=== PATIENT | male | born 1960 | race Hispanic/Latino ===

== ENCOUNTER 2020-06-01 10:58 | Emergency (ER) | payer OTHER ==
--- NOTE | 2020-06-01 11:30 | RAD REPORT ---
EXAM DESCRIPTION: CT - Ct Stroke Brain Wo Cont - 06/01/2020 11:18 am CLINICAL HISTORY: Numbness COMPARISON: none TECHNIQUE: Computed axial tomography of the head was obtained. All CT scans are performed using dose optimization technique as appropriate and may include automated exposure control or mA/KV adjustment according to patient size. FINDINGS: An intracranial bleed is not seen . The ventricles are normal in caliber. No extra-axial fluid collection is noted. Fluid within the sinuses/ mastoids is not seen. IMPRESSION: No acute intracranial abnormality is seen. If patient's symptoms persist MRI of the bra in would be recommended. Frieda of the emergency room notified 11:24 a.m. June 01, 2020
[2020-06-01 11:33] LABS: Absolute Lymphocytes (CBC) 2.1 K/uL (0.7-4.9); Basophils % 0.9 % (0-1.3); Hematocrit 38.7 % (39.6-49.0); Lymphocytes % 34.6 % (15.3-44.8); RBC Red Blood Cell Count 4.55 M/uL (4.33-5.43)
[2020-06-01 11:38] LABS: Protime INR 0.9
[2020-06-01 11:49] LABS: Potassium 3.2 mmol/L (3.5-5.1)
--- NOTE | 2020-06-01 12:21 | RAD REPORT ---
EXAM DESCRIPTION: Trixie Single View06/01/2020 12:10 pm CLINICAL HISTORY: Hypertension/numbness COMPARISON: 2016 FINDINGS: The lungs appear clear of acute infiltrate. The heart is normal size IMPRESSION: No acute abnormalities displayed
--- OUTSIDE RECORDS SUMMARY | 2020-06-01 13:30 | XMS REPORT | Continuity of Care Document ---
:1960 Author Organization [facility] t Address [address] [place] [address] Care Team Providers Name Role Phone Unavailable Unavailable Unavailable Problems Condition Condition Condition Status Onset Resolution Last Treating Co mments Source Name Details Category Date Date Treatment Clinician Date Benign Benign Problem Active [facility] prostatic Prostatic da hypertroph Hypertroph Me dical y without y without Grou p outflow Outflow obstructio Obstructio n n Incomplete Incomplete Problem Active [facility] emptying Emptying da of bladder of Bladder Me dical Group Increased Increased Problem Active [facility] frequency Frequency da of of Medical urination Urination Grou p Allergies, Adverse Reactions, Alerts Allergy Allergy Status Severity Reaction(s) Onset Inactive Treating Comm ents Source Name Type Date Date Clinician Morphine Allergy Active [facility] to da substanc Medical e Group Social History Smoking Status Start Date Stop Date Source Light Tobacco Smoker [facility] Medications Ordered Filled Start Stop Current Ordering Indication Dosage Frequency Signature Comments Components Source Medication Medication Date Date Medication? Clinician (SIG) Name Name acetaminoph acetaminoph No acetaminop [facility] en 300 en 300 hen 300 da mg-codeine mg-codeine mg-codeine Medical 30 mg 30 mg 30 mg Group tablet tablet tablet alprazolam alprazolam No alprazolam [facility] 0.25 mg 0.25 mg 0.25 mg da tablet tablet tablet Medical Group alprazolam alprazolam No alprazolam [facility] 0.5 mg 0.5 mg 0.5 mg da tablet tablet tablet Medical Group alprazolam alprazolam No alprazolam [facility] 2 mg tablet 2 mg tablet 2 mg d a tablet Medical Group amlodipine amlodipine No amlodipine [facility] 10 mg 10 mg 10 mg da tablet tablet tablet Medical Group amlodipine amlodipine No amlodipine [facility] 5 mg tablet 5 mg tablet 5 mg d a tablet Medical Group amoxicillin amoxicillin No amoxicilli [facility] 500 mg 500 mg n 500 mg da capsule capsule capsule Medica l Group amoxicillin amoxicillin No amoxicilli [facility] 500 500 n 500 da mg-potassiu mg-potassiu mg-potassi Medical m m um Group clavulanate clavulanate clavulanat 125 mg 125 mg e 125 mg tablet tablet tablet amoxicillin amoxicillin No amoxicilli [facility] 875 875 n 875 da mg-potassiu mg-potassiu mg-potassi Medical m m um Group clavulanate clavulanate clavulanat 125 mg 125 mg e 125 mg tablet tablet tablet azithromyci azithromyci No azithromyc [facility] n 250 mg n 250 mg in 250 mg da tablet tablet tablet Medical Group benzonatate benzonatate No benzonatat [facility] 100 mg 100 mg e 100 mg da capsule capsule capsule Medica l Group bupropion bupropion No bupropion [facility] HCl SR 150 HCl SR 150 HCl SR 150 da mg mg mg Medical tablet,12 tablet,12 tablet,12 Group hr hr hr sustained-r sustained-r sustained- elease elease release buspirone buspirone No buspirone [facility] 7.5 mg 7.5 mg 7.5 mg da tablet tablet tablet Medical Group carisoprodo carisoprodo No carisoprod [facility] l 350 mg l 350 mg ol 350 mg da tablet tablet tablet Medical Group cephalexin cephalexin No cephalexin [facility] 500 mg 500 mg 500 mg da capsule capsule capsule Medica l Group clarithromy clarithromy No clarithrom [facility] mark 500 mg mark 500 mg ycin 500 da tablet tablet mg tablet Medica l Group clonazepam clonazepam No clonazepam [facility] 2 mg 2 mg 2 mg da disintegrat disintegrat disintegra Medical ing tablet ing tablet ting Moises up tablet diphenhydra diphenhydra No diphenhydr [facility] mine 25 mg mine 25 mg amine 25 da capsule capsule mg capsule Med ical Group donepezil 5 donepezil 5 No donepezil [facility] mg tablet mg tablet 5 mg da tablet Medical Group Duexis 800 Duexis 800 No Duexis 800 [facility] mg-26.6 mg mg-26.6 mg mg-26.6 mg da tablet tablet tablet Medical Group famotidine famotidine No famotidine [facility] 20 mg 20 mg 20 mg da tablet tablet tablet Medical Group finasteride finasteride No finasterid [facility] 5 mg tablet 5 mg tablet e 5 mg da Take 1 Take 1 tablet Medical tablet tablet Take 1 Group every day every day tablet by oral by oral every day route. route. by oral route. fluticasone fluticasone No fluticason [facility] 50 50 e 50 da mcg/actuati mcg/actuati mcg/actuat Medical on nasal on nasal ion nasal Gr oup spray,suspe spray,suspe spray,susp nsion nsion ension hydrocodone hydrocodone No hydrocodon [facility] 10 10 e 10 da mg-acetamin mg-acetamin mg-acetami Medical ophen 325 ophen 325 nophen 325 Group mg tablet mg tablet mg tablet hydroxyzine hydroxyzine No hydroxyzin [facility] HCl 10 mg HCl 10 mg e HCl 10 d a tablet tablet mg tablet Medica l Group ibuprofen ibuprofen No ibuprofen [facility] 800 mg 800 mg 800 mg da tablet tablet tablet Medical Group indomethaci indomethaci No indomethac [facility] n 25 mg n 25 mg in 25 mg da capsule capsule capsule Medica l Group lorazepam lorazepam No lorazepam [facility] 0.5 mg 0.5 mg 0.5 mg da tablet tablet tablet Medical Group losartan 25 losartan 25 No losartan [facility] mg tablet mg tablet 25 mg da tablet Medical Group losartan 50 losartan 50 No losartan [facility] mg tablet mg tablet 50 mg da tablet Medical Group memantine memantine No memantine [facility] 10 mg 10 mg 10 mg da tablet tablet tablet Medical Group methylpredn methylpredn No methylpred [facility] isolone 4 isolone 4 nisolone 4 da mg tablets mg tablets mg tablets Medical in a dose in a dose in a dose Group pack pack pack montelukast montelukast No montelukas [facility] 10 mg 10 mg t 10 mg da tablet tablet tablet Medical Group off deep off deep No off deep [facility] reinoso 25 % reinoso 25 % reinoso 25 % da aero aero aero Medical Group omeprazole omeprazole No omeprazole [facility] 40 mg 40 mg 40 mg da capsule,del capsule,del capsule,de Medical ayed ayed layed Group release release release pantoprazol pantoprazol No pantoprazo [facility] e 40 mg e 40 mg le 40 mg da tablet,miguel angel tablet,miguel angel tablet,del Medical yed release yed release ayed G roup release podofilox podofilox No podofilox [facility] 0.5 % 0.5 % 0.5 % da topical topical topical Medica l solution solution solution Moises up APPLY BY APPLY BY APPLY BY TOPICAL TOPICAL TOPICAL ROUTE 2 ROUTE 2 ROUTE 2 TIMES PER TIMES PER TIMES PER DAY FOR 3 DAY FOR 3 DAY FOR 3 DAYS THEN DAYS THEN DAYS THEN STOP FOR 4 STOP FOR 4 STOP FOR 4 DAYS. DAYS. DAYS. (REPEAT (REPEAT (REPEAT 7DAY CYCLE 7DAY CYCLE 7DAY CYCLE UNTIL NO UNTIL NO UNTIL NO VISIBLE VISIBLE VISIBLE WART WART WART TISSUE/MAX TISSUE/MAX TISSUE/MAX OF FOUR OF FOUR OF FOUR CYCLES) CYCLES) CYCLES) prednisone prednisone No prednisone [facility] 10 mg 10 mg 10 mg da tablet tablet tablet Medical Group prednisone prednisone No prednisone [facility] 20 mg 20 mg 20 mg da tablet tablet tablet Medical Group ProAir HFA ProAir HFA No ProAir HFA [facility] 90 90 90 da mcg/actuati mcg/actuati mcg/actuat Medical on aerosol on aerosol ion Moises up inhaler inhaler aerosol inhaler promethazin promethazin No promethazi [facility] e 6.25 mg/5 e 6.25 mg/5 ne 6.25 da mL syrup mL syrup mg/5 mL Medi luis syrup Group promethazin promethazin No promethazi [facility] e-DM 6.25 e-DM 6.25 ne-DM 6.25 da mg-15 mg/5 mg-15 mg/5 mg-15 mg/5 Medical mL syrup mL syrup mL syrup Moises up Pylera 140 Pylera 140 No Pylera 140 [facility] mg-125 mg-125 mg-125 da mg-125 mg mg-125 mg mg-125 mg Medical capsule capsule capsule Group Q-Tussin Q-Tussin No Q-Tussin [facility] 100 mg/5 mL 100 mg/5 mL 100 mg/5 da oral liquid oral liquid mL oral Medical liquid Group sertraline sertraline No sertraline [facility] 100 mg 100 mg 100 mg da tablet tablet tablet Medical Group sertraline sertraline No sertraline [facility] 50 mg 50 mg 50 mg da tablet tablet tablet Medical Group sulfamethox sulfamethox No sulfametho [facility] azole 800 azole 800 xazole 800 da mg-trimetho mg-trimetho mg-trimeth Medical prim 160 mg prim 160 mg oprim 160 Group tablet tablet mg tablet Suprep Suprep No Suprep [facility] Bowel Prep Bowel Prep Bowel Prep da Kit 17.5 Kit 17.5 Kit 17.5 Med ical gram-3.13 gram-3.13 gram-3.13 Group gram-1.6 gram-1.6 gram-1.6 gram oral gram oral gram oral solution solution solution tamsulosin tamsulosin No tamsulosin [facility] 0.4 mg 0.4 mg 0.4 mg da capsule capsule capsule Medica l Take 2 Take 2 Take 2 Group capsules capsules capsules every day every day every day by oral by oral by oral route at route at route at bedtime for bedtime for bedtime 30 days. 30 days. for 30 days. Travel Travel No Travel [facility] Sickness Sickness Sickness da (meclizine) (meclizine) (meclizine Medical 25 mg 25 mg ) 25 mg Group chewable chewable chewable tablet tablet tablet triamcinolo triamcinolo No triamcinol [facility] ne ne one da acetonide acetonide acetonide Medical 0.025 % 0.025 % 0.025 % Group topical topical topical cream cream cream Virtussin Virtussin No Virtussin [facility] AC 10 AC 10 AC 10 da mg-100 mg/5 mg-100 mg/5 mg-100 Medical mL oral mL oral mg/5 mL Group liquid liquid oral liquid zolpidem 10 zolpidem 10 No zolpidem [facility] mg tablet mg tablet 10 mg da tablet Medical Group Vital Signs Vital Name Observation Time Observation Value Comments Source BP Diastolic 2018-07-24 00:00:00 97 mm[Hg] [facility] BP Systolic 2018-07-24 00:00:00 146 mm[Hg] [facility] Body Weight 2018-07-24 00:00:00 220 [lb_av] [facility] Procedures Procedure Date / Time Performed Performing Clinician [facility] e CT, urogram 2018-07-24 00:00:00 Wu Cortez Plan of Care Planned Activity Planned Date Details Comments Source Diagnostic Test 2018-07-24 urinalysis, [facility] 00:00:00 dipstick [code = Group urinalysis, dipstick] Diagnostic Test 2018-07-24 CMP, serum or [facility] 00:00:00 plasma [code = Group CMP, serum or plasma] Diagnostic Test 2018-07-24 cytology, urine [facility] Pending 00:00:00 [code = cytology, Group urine] Encounters Start End Encounter Admission Attending Care Care Encounter Source Date/Time Date/Time Type Type Clinicians Facility Department ID 2018-07-24 2018-07-24 Gaurang ARMSTRONG [place] - [id number] [facility] 00:00:00 00:00:00 Discovery donal Muir MD: [address] [place] [address] - [address], [place] [address] , Ph. Results This patient has no known results.
--- NOTE | 2020-06-01 16:45 | ER ---
Nurse's Notes [facility] Name: Isra Carrizales Age: 60 yrs Sex: Male : 1960 Arrival Date: 06/01/2020 Time: 11:01 Bed 28 Private MD: Diagnosis: Paresthesia of skin;Slurred speech Presentation: 06/01 11:08 Chief complaint: Patient states: "I woke up at 3:30am and felt fine but I lost my aa5 balance and fell on the left side, went back to sleep and woke up at 6:30 and felt fine with no symptoms but at 9 am I felt the right side of my forehead numb". Pt's significant other also reports slurred speech at 0830. 11:08 Onset of symptoms was June 01, 2020. aa5 11:08 Acuity: TOMAS 2 aa5 11:08 Method Of Arrival: Wheelchair aa5 11:08 An acute neurological deficit is present. The charge nurse has been notified. The jl7 patient has been moved to a treatment area. 11:08 Transition of care: patient was not received from another setting of care. [facility] 11:25 Coronavirus screen: Client denies travel out of the [place] in the last 14 days. At this [facility] time, the client does not indicate any symptoms associated with coronavirus-19. Ebola Screen: No symptoms or risks identified at this time. Pre-hospital glucose is not applicable to this patient. Initial Sepsis Screen: Does the patient meet any 2 criteria? No. Patient's initial sepsis screen is negative. Does the patient have a suspected source of infection? No. Patient's initial sepsis screen is negative. Risk Assessment: Do you want to hurt yourself or someone else? Patient reports no desire to harm self or others. Care prior to arrival: None. Triage Assessment: 11:08 The onset of the patients symptoms was June 01, 2020 at 03:30. General: Appears in jl7 no apparent distress. uncomfortable, Behavior is calm, cooperative, appropriate for age. Stroke Activation: Symtpom onset >3 hours and < 6 hours Physician: Stroke Attending; Name: ; Notified At: ; Arrived At: Physician: Chief Stroke Resident; Name: ; Notified At: ; Arrived At: Physician: Stroke Resident; Name: ; Notified At: ; Arrived At: Physician: ED Attending; Name: Zoe; Notified At: ; Arrived At: Physician: ED Resident; Name: ; Notified At: ; Arrived At: Historical: - Allergies: 11:10 Morphine (Rash); aa5 - PMHx: 11:10 BPH; Hypertension; CVA; aa5 - Immunization history:: Adult Immunizations unknown. - Social history:: Smoking status: Patient reports the use of cigarette tobacco products. Screenin:16 Abuse screen: Denies threats or abuse. Denies injuries from another. Nutritional iw screening: No deficits noted. Tuberculosis screening: No symptoms or risk factors identified. Fall Risk None identified. 11:23 The patient has not been NPO before screening. The patient is currently on the jl7 following diet: Regular The patient is alert, able to follow commands. The patient does not exhibit slurred or garbled speech The patient is not exhibiting difficulty speaking. The patient does not exhibit difficulty understanding words. The patient is able to swallow own secretions with no drooling or need for suction. Patient tolerated one teaspoon of water. No drooling, immediate coughing, gurgling, or clearing of the throat was noted. The patient tolerated 90mL of water. No drooling, immediate coughing, gurgling, or clearing of the throat was noted. The patient passed the bedside swallow screening. Oral medications may be given as ordered. Contact Physician for further diet orders. Provider notified of bedside swallow screening results: Joaquin Enriquez MD. Assessment: 11:08 VAN Scoring: Arm Drift: Patients demonstrates NO arm weakness. Patient is VAN Negative. jl7 T-PA (Activase) Screening: Contraindications: Rapidly improving condition or minor deficit: Yes. 11:15 General: Appears in no apparent distress. Behavior is calm, cooperative. Pain: Denies iw pain. Neuro: Level of Consciousness is awake, alert, obeys commands, Oriented to person, place, time, situation, Museum Assistant are equal bilaterally Moves all extremities. Full function Speech is normal, Facial symmetry appears normal, Numbness in forehead and right jain Reports numbness. Cardiovascular: Capillary refill < 3 seconds in bilateral fingers Patient's skin is warm and dry. Respiratory: Respiratory effort is even, unlabored, Respiratory pattern is regular, symmetrical. GI: Abdomen is flat, non-distended. Derm: Skin is intact, is healthy with good turgor. Musculoskeletal: Range of motion: intact in all extremities. 11:23 The patient has not been NPO before screening. The patient is currently on the jl7 following diet: Regular The patient is alert, and able to follow commands. The patient does not exhibit slurred or garbled speech. The patient is not exhibiting difficulty speaking. The patient does not exhibit difficulty understanding words. The patient is able to swallow own secretions with no drooling or need for suction. Patient tolerated one teaspoon of water. No drooling, immediate coughing, gurgling, or clearing of the throat was noted. The patient tolerated 90mL of water. No drooling, immediate coughing, gurgling, or clearing of the throat was noted. The patient passed the bedside swallow screening. Oral medications may be given as ordered. Contact Physician for further diet orders. Provider notified of bedside swallow screening results: Joaquin Enriquez MD. 12:15 Reassessment: Patient appears in no apparent distress at this time. No changes from jl7 previously documented assessment. Patient and/or family updated on plan of care and expected duration. Pain level reassessed. Patient is alert, oriented x 3, equal unlabored respirations, skin warm/dry/pink. 13:15 Reassessment: Patient appears in no apparent distress at this time. No changes from jl7 previously documented assessment. Patient and/or family updated on plan of care and expected duration. Pain level reassessed. Patient is alert, oriented x 3, equal unlabored respirations, skin warm/dry/pink. Awaiting MRI. 15:17 Reassessment: Pt agitated, states "I have to go. jl7 Vital Signs: 11:08 BP 111 / 72; Pulse 66; Resp 18 S; Pulse Ox 99% on R/A; aa5 11:35 BP 99 / 68; Pulse 62; Resp 17; Pulse Ox 95% ; jl7 12:20 BP 110 / 83; Pulse 59; Resp 13; Pulse Ox 97% ; jl7 13:46 BP 110 / 81; Pulse 54; Resp 16; Pulse Ox 97% ; jl7 NIH Stroke Scale Scores: 11:08 NIHSS Score: 0 jl7 ED Course: 11:01 Patient arrived in ED. as 11:08 Leslie Laureano RN is Primary Nurse. jl7 11:08 Arm band placed on Patient placed in an exam room, on a stretcher. aa5 11:13 Joaquin Enriquez MD is Attending Physician. kdr 11:17 Triage completed. aa5 11:20 CT Stroke Brain w/o Contrast In Process Unspecified. EDMS 11:23 Patient has correct armband on for positive identification. Placed in gown. Bed in low jl7 position. Call light in reach. Side rails up X2. threat monitoring analyst on. Pulse ox on. NIBP on. Warm blanket given. 11:26 Initial lab(s) drawn, by ED staff, sent to lab. EKG done, by ED staff, reviewed by jl7 Joaquin Enriquez MD. Inserted saline lock: 20 gauge in right antecubital area, using aseptic technique. Blood collected. inserted by GUZMAN, binder cutter. 11:54 Leslie Laureano, RN is Primary Nurse. jl7 12:11 Stroke CXR 1 View In Process Unspecified. EDMS Administered Medications: No medications were administered Point of Care Testing: Blood Glucose: 11:10 Blood Glucose: 88 mg/dL; aa5 Ranges: Outcome: 16:46 Patient left the ED. jl7 NIH Stroke Scale - NIH Stroke Score Date: 06/01/2020 Time: 11:08 Total Score = 0 1a. Level of Consciousness (LOC) - 0(Alert) 1b. Level of Consciousness (LOC) (Year \\T\\ Age) - 0(Both) 1c. LOC Commands (Open \\T\\ Closes Eyes/3Rd Grade Reading Teacher) - 0(Both) 2. Best Gaze (Lateral Gaze Paresis) - 0(Normal) 3. Visual Field Loss - 0(No visual loss) 4. Facial Palsy - 0(Normal) 5a. Left Arm: Motor (10-second hold) - 0(No drift) 5b. Right Arm: Motor (10-second hold) - 0(No drift) 6a. Left Leg: Motor (5-second hold - always test supine) - 0(No drift) 6b. Right Leg: Motor (5-second hold - always test supine) - 0(No drift) 7. Limb Ataxia (finger/nose \\T\\ heel/mejia - test with eyes open) - 0(Absent) 8. Sensory Loss (pinprick arms/legs/face) - 0(Normal) 9. Best Language: Aphasia (description/naming/reading) - 0(No aphasia) 10. Dysarthria (speech clarity - read or repeat words) - 0(Normal) 11. Extinction and Inattention (visual/tactile/auditory/spatial/personal) - 0(No abnormality) Initials: jl7 Signatures: Dispatcher [employer] Joaquin Palmer MD MD kdr Martinez, Amelia as Williams, Irene, RN RN iw Calderon, Audri, RN RN aa5 Leslie Laureano RN RN jl7
--- NOTE | 2020-06-01 16:45 | EDPHYS ---
Physician Documentation [facility] Name: Isra Carrizales Age: 60 yrs Sex: Male : 1960 Arrival Date: 06/01/2020 Time: 11:01 Bed 28 Private MD: ED Physician Joaquin Enriquez HPI: 06/02 15:55 This 60 yrs old Male presents to ER via Wheelchair with complaints of Facial kdr Pain/Numbness. 15:55 The patient presents to the emergency department with paresthesias of the right side of kdr the face, that is mild, Right Forehead only. Onset: The symptoms/episode began/occurred suddenly, this morning. Context: occurred at home. Associated signs and symptoms: The patient has no apparent associated signs or symptoms. Severity of symptoms: At their worst the symptoms were very mild in the emergency department the symptoms are unchanged. Patient's baseline: Neuro: alert and fully oriented, alert but confused, orientated to person, place, time, Motor: no deficits, Speech: normal. Current symptoms: The patient has had intermittent s/s on and off since 3:30 AM . The patient has not experienced similar symptoms in the past. The patient has not recently seen a physician. Historical: - Allergies: 06/01 11:10 Morphine (Rash); aa5 - PMHx: 11:10 BPH; Hypertension; CVA; aa5 - Immunization history:: Adult Immunizations unknown. - Social history:: Smoking status: Patient reports the use of cigarette tobacco products. ROS: 06/02 15:55 Constitutional: Negative for fever, chills, and weight loss, Eyes: Negative for injury, kdr pain, redness, and discharge, ENT: Negative for injury, pain, and discharge, Neck: Negative for injury, pain, and swelling, Cardiovascular: Negative for chest pain, palpitations, and edema, Respiratory: Negative for shortness of breath, cough, wheezing, and pleuritic chest pain, Abdomen/GI: Negative for abdominal pain, nausea, vomiting, diarrhea, and constipation, Back: Negative for injury and pain, : Negative for injury, bleeding, discharge, and swelling, MS/Extremity: Negative for injury and deformity, Skin: Negative for injury, rash, and discoloration, Psych: Negative for depression, anxiety, suicide ideation, homicidal ideation, and hallucinations, Allergy/Immunology: Negative for hives, rash, and allergies, Endocrine: Negative for neck swelling, polydipsia, polyuria, polyphagia, and marked weight changes, Hematologic/Lymphatic: Negative for swollen nodes, abnormal bleeding, and unusual bruising. Neuro: Positive for paresthesia right forehead. Exam: 06/01 17:46 ECG was reviewed by the Attending Physician. kdr 06/02 15:55 Constitutional: This is a well developed, well nourished patient who is awake, alert, kdr and in no acute distress. Head/Face: Normocephalic, atraumatic. Eyes: Pupils equal round and reactive to light, extra-ocular motions intact. Lids and lashes normal. Conjunctiva and sclera are non-icteric and not injected. Cornea within normal limits. Periorbital areas with no swelling, redness, or edema. Neck: Trachea midline, no thyromegaly or masses palpated, and no cervical lymphadenopathy. Supple, full range of motion without nuchal rigidity, or vertebral point tenderness. No Meningismus. Chest/axilla: Normal chest wall appearance and motion. Nontender with no deformity. No lesions are appreciated. Cardiovascular: Regular rate and rhythm with a normal S1 and S2. No gallops, murmurs, or rubs. Normal PMI, no JVD. No pulse deficits. Respiratory: Lungs have equal breath sounds bilaterally, clear to auscultation and percussion. No rales, rhonchi or wheezes noted. No increased work of breathing, no retractions or nasal flaring. Abdomen/GI: Soft, non-tender, with normal bowel sounds. No distension or tympany. No guarding or rebound. No evidence of tenderness throughout. Back: No spinal tenderness. No costovertebral tenderness. Full range of motion. Skin: Warm, dry with normal turgor. Normal color with no rashes, no lesions, and no evidence of cellulitis. MS/ Extremity: Pulses equal, no cyanosis. Neurovascular intact. Full, normal range of motion. Psych: Awake, alert, with orientation to person, place and time. Behavior, mood, and affect are within normal limits. Neuro: Sensation: no obvious gross deficits, numbness, that is mild, of the forehead right . Vital Signs: 06/01 11:08 BP 111 / 72; Pulse 66; Resp 18 S; Pulse Ox 99% on R/A; aa5 11:35 BP 99 / 68; Pulse 62; Resp 17; Pulse Ox 95% ; jl7 12:20 BP 110 / 83; Pulse 59; Resp 13; Pulse Ox 97% ; jl7 13:46 BP 110 / 81; Pulse 54; Resp 16; Pulse Ox 97% ; jl7 NIH Stroke Scale Scores: 11:08 NIHSS Score: 0 jl7 MDM: 16:44 Patient medically screened. kdr 06/02 15:55 Data reviewed: vital signs, nurses notes, lab test result(s), EKG, radiologic studies. kdr Counseling: I had a detailed discussion with the patient and/or guardian regarding: the historical points, exam findings, and any diagnostic results supporting the discharge/admit diagnosis, lab results, radiology results. ED course: Due to delay in MRI, the patient left AMA. 06/01 11:14 Order name: Basic Metabolic Panel; Complete Time: 14:04 kdr 06/01 11:14 Order name: CBC with Diff; Complete Time: 14:04 kdr 06/01 11:14 Order name: Protime (+inr); Complete Time: 14:04 kdr 06/01 11:14 Order name: Ptt, Activated; Complete Time: 14:04 kdr 06/01 11:14 Order name: CT Stroke Brain w/o Contrast; Complete Time: 14:04 kdr 06/01 11:23 Order name: Glucose, Ancillary Testing; Complete Time: 14:04 EDDC 06/01 11:14 Order name: Stroke CXR 1 View; Complete Time: 14:04 kdr 06/01 11:14 Order name: EKG; Complete Time: 11:15 kdr 06/01 11:14 Order name: Accucheck; Complete Time: :22 kdr 06/01 11:14 Order name: Cardiac monitoring; Complete Time: 11:25 kdr 06/01 11:14 Order name: EKG - Nurse/Tech; Complete Time: 11:25 kdr 06/01 11:14 Order name: IV Saline Lock; Complete Time: 11:25 kdr 06/01 11:14 Order name: Labs collected and sent; Complete Time: 11:24 kdr 06/01 11:14 Order name: NPO; Complete Time: 11:24 kdr 06/01 11:14 Order name: O2 Per Protocol; Complete Time: 11:24 kdr 06/01 11:14 Order name: O2 Sat Monitoring; Complete Time: kdr 06/01 11:14 Order name: Stroke Swallow Screen; Complete Time: kdr EC/22 17:46 Rate is 61 beats/min. Rhythm is regular, Sinus Rhythm with No ectopy. QRS [place] is kdr Normal. HI interval is normal. QRS interval is normal. QT interval is normal. Clinical impression: NSR w/ Non-specific ST/T Changes. Administered Medications: No medications were administered Point of Care Testing: Blood Glucose: : Blood Glucose: 88 mg/dL; aa5 Ranges: Critical Glucose Levels:Adult <50 mg/dl or >400 mg/dl <40 mg/dl or >180 mg/dl Disposition: 06/01/20 16:44 Patient has left against medical advice. Impression: Paresthesia of skin, Slurred speech. - Patients states they are going to Home. - Condition is Stable. - Discharge Instructions: Paresthesia, [id number]. Follow up: Private Physician; When: 1 - 2 days; Reason: If symptoms return, Further diagnostic work-up, Recheck today's complaints, Continuance of care, Re-evaluation by your physician. - Problem is new. - Symptoms have improved. NIH Stroke Scale - NIH Stroke Score Date: 06/01/2020 Time: 11:08 Total Score = 0 1a. Level of Consciousness (LOC) - 0(Alert) 1b. Level of Consciousness (LOC) (Year \T\ Age) - 0(Both) 1c. LOC Commands (Open \T\ Closes Eyes/Insulation Machine Operator) - 0(Both) 2. Best Gaze (Lateral Gaze Paresis) - 0(Normal) 3. Visual Field Loss - 0(No visual loss) 4. Facial Palsy - 0(Normal) 5a. Left Arm: Motor (10-second hold) - 0(No drift) 5b. Right Arm: Motor (10-second hold) - 0(No drift) 6a. Left Leg: Motor (5-second hold - always test supine) - 0(No drift) 6b. Right Leg: Motor (5-second hold - always test supine) - 0(No drift) 7. Limb Ataxia (finger/nose \T\ heel/mejia - test with eyes open) - 0(Absent) 8. Sensory Loss (pinprick arms/legs/face) - 0(Normal) 9. Best Language: Aphasia (description/naming/reading) - 0(No aphasia) 10. Dysarthria (speech clarity - read or repeat words) - 0(Normal) 11. Extinction and Inattention (visual/tactile/auditory/spatial/personal) - 0(No abnormality) Initials: jl7 Signatures: Dispatcher [employer] [facility] Joaquin Enriquez MD MD kdr Annabelle Graff RN RN aa5 Leslie Laureano RN RN jl7 Corrections: (The following items were deleted from the chart) 12:26 12:00 Brain With Cont+MRI.RAD.BRZ ordered. [facility] 16:46 16:44 06/01/2020 16:44 Patients has left against medical advice. Impression: geni Paresthesia of skin; Slurred speech. Patient states they are going to Home. Condition is Stable. Follow up: Private Physician; When: 1 - 2 days; Reason: If symptoms return, Further diagnostic work-up, Recheck today's complaints, Continuance of care, Re-evaluation by your physician. Problem is new. Symptoms have improved. kdr
[2020-06-01 17:03] VITALS: O2SAT 97
[2020-06-01 17:05] VITALS: BP 110/81
== END 2020-06-01 16:46 | disposition left against medical advice (07) ==
LOC: ER 10:58
DX: R47.81 Slurred speech (principal); I10 Essential (primary) hypertension; F17.210 Nicotine dependence, cigarettes, uncomplicated; Z88.5 Allergy status to narcotic agent; Z86.73 Personal history of transient ischemic attack (TIA), and cerebral infarction without residual deficits
CPT/HCPCS: 36415; 70450; 71045; 80048; 82947; 85025; 85610; 85730; 93005; 99284

== ENCOUNTER 2024-09-03 05:55 | Day surgery (SDC) | payer OTHER ==
--- NOTE | 2024-08-30 10:50 | RAD REPORT ---
EXAMINATION: TWO VIEW CHEST XR CLINICAL INDICATION: Pre-op pending rotator cuff repair TECHNIQUE: 2 views of the chest was performed. COMPARISON: 06/01/2020 FINDINGS: The lungs are well inflated and clear. The heart is normal in size. No displaced fractures evident. S mall hiatal hernia. IMPRESSION: No acute or significant abnormalities.
[2024-08-30 10:52] LABS: Absolute Basophils 0.1 K/uL (0-0.5); Absolute Eosinophils 0.1 K/uL (0-0.5); Absolute Lymphocytes (CBC) 1.8 K/uL (0.7-4.9); Absolute Monocytes 0.8 K/uL (0.1-1.3); Absolute Neutrophil 3.8 K/uL (1.8-8.0); Basophils % 1.2 % (0-1.3); Eosinophils % 1.7 % (0-4.4); Hematocrit 45.8 % (39.6-49.0); Hemoglobin 15.2 g/dL (13.6-17.9); Lymphocytes % 27.4 % (15.3-44.8); MCH 28.8 pg (27.0-35.0); MCHC 33.1 g/dL (32.0-36.0); MCV 86.8 fL (80-100); Neutrophils % 57.7 % (41.7-73.7); Nucleated Red Blood Cells % 0.1 % (0-0); Platelets 318 thou/uL (152-406); RBC Red Blood Cell Count 5.28 M/uL (4.33-5.43); Red Cell Distribution Width 14.9 % (12.1-15.2)
[2024-08-30 10:56] LABS: PT Prothrombin Time 11.3 SECONDS (9.4-12.5); PTT, Activated Partial Thromb 33.8 SECONDS (24.3-36.9); Protime INR 1.08
--- NOTE | 2024-09-02 13:03 | EKG ---
Test Date: 2024-08-30 Test Time: 11:24:54 Diver Assistant: CIRA MEASUREMENT RESULTS: Intervals: Rate: 51 ID: [id number] QRSD: 104 QT: 410 QTc: 377 Alleene: P: 33 ID: [id number] QRS: 14 T: 40 INTERPRETIVE STATEMENTS: Sinus bradycardia Otherwise normal ECG Compared to ECG 08/28/2023 14:45:49 ST (T wave) deviation no longer present Electronically Signed On 09-02-24 13:00:02 FUNERAL DIRECTOR/EMBALMER by Bin Shelton
[2024-09-03] MEDS: Ringers Lactate 1,000 ML IV ONE ×2 (06:25→09:30)
[2024-09-03] MEDS ORDERED: LIDOCAINE 1% MPF 5 ML VIAL ONE (07:04)
[2024-09-03] MEDS ORDERED: EPINEPHRINE 1 MG/ML VIAL ONE (07:04)
[2024-09-03] MEDS ORDERED: dexAMETHasone 10 MG/ML VIAL ONE ×2 (07:04→07:44)
[2024-09-03] MEDS ORDERED: FENTANYL CITR 100 MCG/2 ML ONE (07:04)
[2024-09-03] MEDS ORDERED: MIDAZOLAM HCL 2 MG/2 ML INJ ONE (07:05)
[2024-09-03] MEDS ORDERED: BUPIVACAINE 0.5% PF 10 ML VIAL ONE (07:05)
[2024-09-03] MEDS ORDERED: propofoL 200 MG/20 ML VIAL IV ONE (07:44)
[2024-09-03] MEDS ORDERED: LIDOCAINE 2% MPF 5 ML VIAL ONE (07:44)
[2024-09-03] MEDS ORDERED: ROCURONIUM 50 MG/5 ML VIAL IV ONE (07:44)
[2024-09-03] MEDS ORDERED: KETOROLAC 30 MG/ML INJ ONE (07:44)
[2024-09-03] MEDS ORDERED: ONDANSETRON 4 MG/2 ML VIAL ONE (07:44)
[2024-09-03] MEDS: CEFAZOLIN SODIUM 2 GM/VIAL ONE (08:00)
[2024-09-03] MEDS ORDERED: NS 0.9% VIAL 20 ML ONE (08:22)
[2024-09-03] MEDS: EPINEPHRINE 1 MG/ML VIAL ONE (08:41)
[2024-09-03] MEDS ORDERED: EPHEDRINE SULF 50 MG/ML VIAL ONE (09:00)
--- NOTE | 2024-09-03 10:02 | P.BOP ---
Preoperative diagnosis: Right shoulder rotator cuff tear, biceps tendinitis, impingement syndrome Postoperative diagnosis: Same, right shoulder SLAP tear Primary procedure: Right shoulder arthroscopic rotator cuff repair Secondary procedure: Right arthroscopic biceps tenotomy with SLAP and subscapularis debridement Other procedure(s): Right shoulder arthroscopic subacromial decompression Estimated blood loss: 10 cc Specimen: None Findings: See dictation Anesthesia: General Complications: None Implants: 1- 5.5 mm Arthrex corkscrew, 2- 4.75 mm Arthrex swivel lock Fluids & blood products: Per anesthesia record Transferred to: Recovery Room Condition: Good
[2024-09-03] MEDS: HYDROMORPHONE HCL 1 MG/ML INJ ONE (10:45)
--- NOTE | 2024-09-03 11:03 | RAD REPORT ---
EXAMINATION: Shoulder 1 View CLINICAL INDICATION: Male, 64 years old. S/P R RCR RIGHT COMPARISON: No prior exam. FINDINGS: Single view No acute fracture. No malalignment/dislocation on this single view. Expected postoperative changes in the soft tissues. Other: n/a IMPRESSION: No acute osseous abnormality.
[2024-09-03 12:26] VITALS: BP 153/89; TEMP 97.2; O2SAT 98
--- NOTE | 2024-09-04 03:49 | OP ---
Date of Procedure: 09/03/2024 Surgeon: Moses Hassan MD Preoperative Diagnoses: 1.Right shoulder rotator cuff tear. 2.Right shoulder bicipital tenosynovitis. 3.Right shoulder impingement syndrome. Postoperative Diagnoses: 1.Right shoulder rotator cuff tear. 2.Right shoulder bicipital tenosynovitis. 3.Right shoulder impingement syndrome. 4.Right shoulder superior labrum anteroposterior tear. 5.Right shoulder subscapularis tear. Procedures Performed: 1.Right shoulder arthroscopic rotator cuff repair. 2.Right shoulder arthroscopic biceps tenotomy with subscapularis debridement and superior labrum ant eroposterior tear debridement. 3.Right shoulder arthroscopic subacromial decompression. Anesthesia: General endotracheal. Fluids: Per Anesthesia record. Estimated Blood Loss: 10 cc. Complications: None. Implants: 1.One 5.5 mm Arthrex corkscrew. 2.Two 4.75 mm Arthrex SwiveLocks. Indication For Procedure: Isra is a 64-year-old male, who presented to my clinic with signs, sympt oms, and MRI findings, consistent with the right shoulder rotator cuff tear. The patient failed cons ervative treatment measures and had a full-thickness tear, causing significant pain and disability, d ifficulty with function. I discussed with the patient at length, risks and benefits associated with operative and nonoperative treatment measures. He expressed understanding and elected to proceed wit h operative treatment. Description Of Procedure: After informed consent was obtained, the patient was identified in the pre operative holding area. The right upper extremity was marked. The patient was then brought back to the PACU, where he underwent an interscalene block to the right upper extremity. The patient was the n brought back to the operating room and transferred to the operating table in a supine fashion and p laced under general endotracheal anesthesia. The patient was placed in the initiated. The correct patient and procedure were properly identified. The patient did receive his preoperative pr ophylactic antibiotics. A spinal needle was then introduced in the glenohumeral joint via the industrial truck mechanic ior portal position; 30 cc of normal saline was then injected into the shoulder to distend the capsul e. An incision was made using an 11 blade, and the arthroscope was brought in via the posterior port al position, and diagnostic arthroscopy was performed. Under direct visualization, an anterior fauzia l and cannula were created. The patient was noted to have significant fraying of the undersurface of the biceps tendon at the anchor, as well as extra-articular portion. The biceps tenotomy was perfor med using a meniscal biter. The patient was noted to have a type 1 SLAP tear, which was debrided usi ng the arthroscopic shaver. The patient also had a small tear at the upper aspect of the subscapular is, which was debrided using the arthroscopic shaver, and the subscapularis was found to be stable to probe. There were no loose bodies within the axillary pouch. The patient had no significant osteoa rthritis noted on the humeral head or glenoid surface. Anterior and posterior labrals were found to be intact and stable to probe. The patient was noted to have a full-thickness tear of the anterior a spect of the supraspinatus tendon. A lateral portal was created and an obturator was brought into th e shoulder joint, consistent with a full-thickness tear. The undersurface of the rotator cuff tear w as then debrided using arthroscopic shaver and the greater tuberosity was debrided using an arthMy eStore App pic shaver to create a bleeding bony bed to aid with healing. The arthroscope was then brought into the subacromial space, and a subacromial bursectomy was performed using the arthroscopic shaver. The rotator cuff tear was then identified. It was reducible to the greater tuberosity without tension. Next, a spinal needle was then placed just lateral to the acromion for placement of the medial row a nchor. Incision was made, and a 5.5 mm double-loaded medial row corkscrew was placed. After the gre ater tuberosity was tapped, the anchor was then placed on tension. There was good overall fixation o f the anchors at the bone. Next, a Eula cannula was placed laterally, and the medial row sutures w ere then passed through the rotator cuff tear in an [id number] fashion and tied down in a horizontal mattress type fashion with overall good reduction of the rotator cuff onto the greater tub erosity. The suture limbs were then placed in a crisscross fashion to increase repair and 2 lateral row anchors were placed, which were 4.75 mm Arthrex SwiveLocks. Remaining sutures were cut . The patient was noted to have some fraying of the coracoacromial ligament as well as some spurring of the undersurface of the acromion. The subacromial decompression was performed using a radiofrequ ency ablator as well as an arthroscopic pankaj. Acromioplasty was performed using arthroscopic pankaj. Arthroscopic instruments were then removed without complication. Wounds were then irrigated thorough ly with normal saline. Subcutaneous tissue was approximated using a 2-0 Vicryl. Portals were approx imated using a 4-0 Monocryl. Sterile dressings were applied. The patient was placed in a shoulder i mmobilizer, awakened, and transferred to PACU in stable condition. The patient will follow up in [place] in one week for wound check and dressing change. He will begin physical therapy at 4 weeks posto p for medial rotator cuff repair protocol. BOOGIE/HARVINDERL Voice ID: [id number] Report ID: [id number]
== END 2024-09-03 12:05 | disposition home or self-care (01) ==
LOC: OR 05:55
PROVIDERS: ATTEND Orthopaedic Surgery Sports Medicine
PROC: 0LM14ZZ Reattachment of Right Shoulder Tendon, Percutaneous Endoscopic Approach (ICD-10-PCS; 2024-09-03)
PROC: 0RNJ4ZZ Release Right Shoulder Joint, Percutaneous Endoscopic Approach (ICD-10-PCS; principal; 2024-09-03 08:00)
DX: M75.121 Complete rotator cuff tear or rupture of right shoulder, not specified as traumatic (principal); S46.011A Strain of muscle(s) and tendon(s) of the rotator cuff of right shoulder, initial encounter; M75.41 Impingement syndrome of right shoulder; M75.21 Bicipital tendinitis, right shoulder; S43.431A Superior glenoid labrum lesion of right shoulder, initial encounter
CPT/HCPCS: 93005; 85025; 80048; 36415; 85610; 82947; 85730; 71046; 73020; 29827; 29826; 29822; A4216; J2704; J2003 ×2; J2250; J3010; J1100 ×2; J0171 ×2; J1171; J2405; J7120 ×2